=== PATIENT | female | born 1935 | race Caucasian/White ===

== ENCOUNTER 2017-04-13 10:28 | Outpatient (CLI) | payer MEDICARE, BC | END 2017-04-13 10:29 | disposition home or self-care (01) | LOC: BICMAMMO 10:28 | PROVIDERS: ATTEND Family Medicine | DX: Z12.31 Encounter for screening mammogram for malignant neoplasm of breast (principal); Z80.3 Family history of malignant neoplasm of breast | CPT/HCPCS: 77063; 77067 ==

== ENCOUNTER 2017-04-20 14:00 | Outpatient (CLI) | payer MEDICARE, BC | END 2017-04-20 14:01 | disposition home or self-care (01) | LOC: BICMAMMO 14:00 | PROVIDERS: ATTEND Family Medicine | DX: R92.8 Other abnormal and inconclusive findings on diagnostic imaging of breast (principal); N64.89 Other specified disorders of breast | CPT/HCPCS: 76642; G0206; G0279 ==

== ENCOUNTER → 2017-04-28 | Day surgery (SDC) | payer MEDICARE, BC | LOC: BICULT 10:54 | PROVIDERS: ATTEND Family Medicine | PROC: 0HBU3ZX Excision of Left Breast, Percutaneous Approach, Diagnostic (ICD-10-PCS; principal; 2017-04-28) | DX: N64.89 Other specified disorders of breast (principal) | CPT/HCPCS: 19083; 88305; 88341; 88342 ==

== ENCOUNTER 2017-11-02 15:29 | Outpatient (CLI) | payer MEDICARE, BC | END 2017-11-02 15:30 | disposition home or self-care (01) | LOC: BICMAMMO 15:29 | PROVIDERS: ATTEND Family Medicine | DX: Z13.820 Encounter for screening for osteoporosis (principal); M81.0 Age-related osteoporosis without current pathological fracture | CPT/HCPCS: 77080 ==

== ENCOUNTER 2018-04-14 08:25 | Outpatient (CLI) | payer MEDICARE, BC | END 2018-04-14 08:26 | disposition home or self-care (01) | LOC: BICMAMMO 08:25 | PROVIDERS: ATTEND Family Medicine | DX: R92.8 Other abnormal and inconclusive findings on diagnostic imaging of breast (principal); N64.89 Other specified disorders of breast; Z85.3 Personal history of malignant neoplasm of breast; Z80.3 Family history of malignant neoplasm of breast | CPT/HCPCS: 77066; G0279 ==

== ENCOUNTER 2018-11-22 10:23 | Outpatient (CLI) | payer MEDICARE, BC ==
--- NOTE | 2018-11-22 11:40 | BD ---
BONE DENSITOMETRY USING DEXA: Date: 11/22/18 HISTORY: Osteoporosis. FINDINGS: Lumbar Spine: BMD (g/cm2) L1 0.609 T-Score: -3.5 Z-Score: -1.0 L2 0.626 T-Score: -3.7 Z-Score: -0.9 L3 0.733 T-Score: -3.2 Z-Score: -0.3 L4 0.857 T-Score: -1.9 Z-Score: 1.1 L1-L4 0.728 T-Score: -2.9 Z-Score: -0.1 Femoral Neck: 0.562 T-Score: -2.6 Z-Score: -0.2 Total Femur: 0.737 T-Score: -1.7 Z-Score: 0.5 IMPRESSION: Osteoporosis. POS: PATIRCIO
== END 2018-11-22 10:24 | disposition home or self-care (01) ==
LOC: BICMAMMO 10:23
PROVIDERS: ATTEND Family Medicine
DX: M81.0 Age-related osteoporosis without current pathological fracture (principal)
CPT/HCPCS: 77080

== ENCOUNTER 2019-05-02 15:01 | Outpatient (CLI) | payer MEDICARE, BC ==
--- NOTE | 2019-05-02 16:02 | MMO ---
Bilateral MAMMO Bilat Diag DDI+BETO. CLINICAL HISTORY: Patient is 83 years old and is seen for diagnostic exam. The patient has the following family history of breast cancer: mother, at age 45. The patient has a history of malignant (generic) in the left breast in 2018. The patient has a history of left Lumpectomy in 2018. VIEWS: The views performed were: bilateral craniocaudal with tomosynthesis; bilateral mediolateral oblique with tomosynthesis; and bilateral mediolateral with tomosynthesis. FILMS COMPARED: The present examination has been compared to prior imaging studies performed at [facility] on 04/13/2017, 04/20/2017, 04/14/2018 and 05/02/2019. This study has been interpreted with the assistance of computer-aided detection. MAMMOGRAM FINDINGS: There are scattered fibroglandular densities. There is a new mass seen in the left breast at 4 o'clock. Left breast mass is solid on US. A focal calcification is present in/adjacent to the mass. In the right breast, there are no suspicious masses, calcifications or areas of architectural distortion. IMPRESSION: NEW MASS IN THE LEFT BREAST IS SUSPICIOUS. AN ULTRASOUND-GUIDED BREAST BIOPSY IS RECOMMENDED. THE RESULTS OF THIS EXAM WERE SENT TO THE PATIENT. ACR BI-RADS Category 4 - Suspicious abnormality - biopsy should be considered D/W pt in person @1551 hrs. MAMMOGRAPHY NOTE: 1. A negative mammogram report should not delay a biopsy if a dominant of clinically suspicious mass is present. 2. Approximately 10% to 15% of breast cancers are not detected by mammography. 3. Adenosis and dense breasts may obscure an underlying neoplasm. Reported by: AUDRA POLANCO MD Electonically Signed: [id number]
--- NOTE | 2019-05-02 16:21 | ULT ---
LEFT BREAST ULTRASOUND: 05/02/19 HISTORY: Abnormal mammogram. FINDINGS: Sonographic evaluation of the 4 o'clock position of the left breast demonstrates a well circumscribed solid appearing nonshadowing 8 x 4 x 6 mm mass corresponding to the mammographic finding, 2 cm from the nipple. IMPRESSION: BI-RADS 4: Suspicious Abnormality - Biopsy Should Be Considered Usually requires biopsy Ultrasound guided biopsy recommended. Discussed in person with the patient at 3:51 p.m.
== END 2019-05-02 15:02 | disposition home or self-care (01) ==
LOC: BICMAMMO 15:01
PROVIDERS: ATTEND Family Medicine
DX: Z08 Encounter for follow-up examination after completed treatment for malignant neoplasm (principal); Z85.3 Personal history of malignant neoplasm of breast
CPT/HCPCS: 76642; 77066; G0279

== ENCOUNTER 2019-11-05 09:27 | Outpatient (CLI) | payer MEDICARE, BC ==
--- NOTE | 2019-11-05 10:12 | MMO ---
Left Breast MAMMO Unilat Diag DDI LT+BETO. CLINICAL HISTORY: Patient is 84 years old and is seen for follow-up at short-interval from prior study. The patient has the following family history of breast cancer: mother, at age 45. The patient has a history of malignant (generic) in the left breast in 2018. The patient has a history of left Lumpectomy in 2018. VIEWS: The views performed were: left craniocaudal with tomosynthesis; left mediolateral oblique with tomosynthesis; and left mediolateral with tomosynthesis. FILMS COMPARED: The present examination has been compared to prior imaging studies performed at [facility] on 05/02/2019, 05/03/2019 and 11/05/2019. This study has been interpreted with the assistance of computer-aided detection. MAMMOGRAM FINDINGS: There are scattered fibroglandular densities. The left breast mass with calcification is stable. IMPRESSION: FINDING IN THE LEFT BREAST IS PROBABLY BENIGN. FOLLOW-UP IN 6 MONTHS IS RECOMMENDED. THE RESULTS OF THIS EXAM WERE SENT TO THE PATIENT. ACR BI-RADS Category 3 - Probably benign finding - short interval follow-up suggested. [facility] will notify the patient of the need for additional imaging services. MAMMOGRAPHY NOTE: 1. A negative mammogram report should not delay a biopsy if a dominant of clinically suspicious mass is present. 2. Approximately 10% to 15% of breast cancers are not detected by mammography. 3. Adenosis and dense breasts may obscure an underlying neoplasm. Reported by: AUDRA POLANCO MD Electonically Signed: [id number]
--- NOTE | 2019-11-05 10:27 | ULT ---
LEFT BREAST ULTRASOUND: HISTORY: Followup nodule. FINDINGS: The hypoechoic solid-appearing mass at the 4 o'clock position of the left breast 2 cm from the nipple measures 8 x 6 x 5 mm and remains stable. IMPRESSION: BIRADS category 3 - probably benign findings. Six-month followup left breast ultrasound and diagnostic mammogram are recommended. POS: OFF
== END 2019-11-05 09:28 | disposition home or self-care (01) ==
LOC: BICMAMMO 09:27
PROVIDERS: ATTEND Internal Medicine Hematology & Oncology
DX: R92.8 Other abnormal and inconclusive findings on diagnostic imaging of breast (principal); Z85.3 Personal history of malignant neoplasm of breast
CPT/HCPCS: 76642; 77065; G0279

== ENCOUNTER 2019-11-28 13:16 | Outpatient (CLI) | payer MEDICARE, BC ==
--- NOTE | 2019-11-28 13:54 | BD ---
Exam: DEXA Bone Density 11/28/19 INDICATIONS: Postmenopausal screening. Lumbar Spine: BMD (g/cm2) T-SCORE L1 0.556 -3.9 L2 0.614 -3.8 L3 0.736 -3.2 L4 0.829 -2.1 L1-L4 0.701 -3.1 Total density 11/22/18: 0.728 Femoral Neck: 0.590 -2.3 Total Femur: 0.769 -1.4 Total density 11/22/18: 0.737 Impression: 1. Bone mineral density of the lumbar spine indicates osteoporosis. 2. Bone mineral density of the femoral neck indicates osteopenia. POS: AH
== END 2019-11-28 13:17 | disposition home or self-care (01) ==
LOC: BICMAMMO 13:16
PROVIDERS: ATTEND Internal Medicine Hematology & Oncology
DX: N95.8 Other specified menopausal and perimenopausal disorders (principal); M81.0 Age-related osteoporosis without current pathological fracture; M85.859 Other specified disorders of bone density and structure, unspecified thigh
CPT/HCPCS: 77080

== ENCOUNTER 2020-05-06 10:26 | Outpatient (CLI) | payer MEDICARE, BC | END 2020-05-06 10:27 | disposition home or self-care (01) | LOC: BICMAMMO 10:26 | PROVIDERS: ATTEND Internal Medicine Hematology & Oncology | DX: C50.312 Malignant neoplasm of lower-inner quadrant of left female breast (principal); Z85.3 Personal history of malignant neoplasm of breast; Z91.89 Other specified personal risk factors, not elsewhere classified | CPT/HCPCS: 77066; G0279 ==

== ENCOUNTER 2020-08-08 13:30 | Outpatient (CLI) | payer MEDICARE, BC | END 2020-08-08 13:31 | disposition home or self-care (01) | LOC: BICULT 13:30 | PROVIDERS: ATTEND Internal Medicine Endocrinology, Diabetes & Metabolism | DX: R22.0 Localized swelling, mass and lump, head (principal) | CPT/HCPCS: 76536 ==

== ENCOUNTER 2021-01-16 15:31 | Outpatient (CLI) | payer MEDICARE, BC | END 2021-01-16 15:32 | disposition home or self-care (01) | LOC: BICMAMMO 15:31 | PROVIDERS: ATTEND Internal Medicine Hematology & Oncology | DX: M81.0 Age-related osteoporosis without current pathological fracture (principal) | CPT/HCPCS: 77080 ==

== ENCOUNTER 2022-01-25 10:29 | Outpatient (CLI) | payer MEDICARE, BC | END 2022-01-25 10:30 | disposition home or self-care (01) | LOC: BICMAMMO 10:29 | PROVIDERS: ATTEND Family Medicine | DX: M81.0 Age-related osteoporosis without current pathological fracture (principal); M81.8 Other osteoporosis without current pathological fracture; Z78.0 Asymptomatic menopausal state | CPT/HCPCS: 77080 ==

== ENCOUNTER 2022-05-10 10:33 | Outpatient (CLI) | payer MEDICARE, BC | END 2022-05-10 10:34 | disposition home or self-care (01) | LOC: BICMAMMO 10:33 | PROVIDERS: ATTEND Family Medicine | DX: Z08 Encounter for follow-up examination after completed treatment for malignant neoplasm (principal); Z85.3 Personal history of malignant neoplasm of breast | CPT/HCPCS: 77066; G0279 ==

== ENCOUNTER 2023-02-04 13:01 | Outpatient (CLI) | payer MEDICARE, BC | END 2023-02-04 13:02 | disposition home or self-care (01) | LOC: BICMAMMO 13:01 | PROVIDERS: ATTEND Family Medicine | DX: M81.0 Age-related osteoporosis without current pathological fracture (principal); M85.852 Other specified disorders of bone density and structure, left thigh; M85.851 Other specified disorders of bone density and structure, right thigh | CPT/HCPCS: 77080 ==

== ENCOUNTER 2023-05-12 13:32 | Outpatient (CLI) | payer MEDICARE | END 2023-05-12 13:33 | disposition home or self-care (01) | LOC: BICMAMMO 13:32 | PROVIDERS: ATTEND Internal Medicine Hematology & Oncology | DX: Z12.31 Encounter for screening mammogram for malignant neoplasm of breast (principal); Z85.3 Personal history of malignant neoplasm of breast; Z80.3 Family history of malignant neoplasm of breast; Z98.890 Other specified postprocedural states | CPT/HCPCS: 77063; 77067 ==